=== PATIENT | female | born 1955 | race Caucasian/White ===

== ENCOUNTER 2024-02-04 10:03 | Day surgery (SDC) | payer MEDICARE, OTHER, SELFPAY ==
--- NOTE | 2024-02-03 11:18 | HP.FOC2 ---
Documented by User: COLLETTE Howard 02/04/24 10:43
Focused History & Physical
Chief Complaint
HPI:
Chief Complaint: ICD at [facility]
HPI / Indication for Planned Procedure:
68 y/o, PMH sig for NICM, chronic systolic HFmrEF 45-50%, NSVT, s/p DC ICD implant 05/2013.
Device now at [facility]. Presents for generator change.
Relevant Past Medical History: Other (Dilated NICM, chronic systolic HFmrEF 45-50%, NSVT, non-rheumatic mild MR, GERD)
Relevant Social History: ETOH (daily ETOH)
Relevant Family History: Positive for (Father- CHF, CAD ( 79), Sibling- Cardiomyopathy (alive))
Relevant Past Surgical History: Positive for (ICD implant (2013), wisdom teeth extraction)
Review of Systems
Review of Pertinent Systems: All Systems Negative
Medication
See Medication form for detailed medications: Yes
Medication List (including Herbals & OTC):
aspirin 81mg po daily
carvedilol 6.25mg po BID
losartan 25mg po daily
Medications Reviewed: Yes
Allergies and Reactions
Patient has Allergies: No
Noted Allergies and Reactions:
Allergy/AdvReac Type Severity Reaction Status Date / Time
No Known Allergies Allergy Unverified 05/07/13 07:28
Diagnosis / Assessment
Dilated NICM/Chronic systolic HFmrEF/NSVT
DC ICD at [facility]
gen change today
continue max huseyin GDMT
incision check in one week at [facility]
Plan / Procedure
ICD generator change today
incision check 1 week
Anesthesia/Sedation to be done by Anesthesia Provider: Yes

Documented by User: COLLETTE Hansen 02/04/24 10:53
Focused History & Physical
Pertinent Physical Exam
All Other Systems: Negative
Head/Neck: Normal
Lungs: Normal
Heart: Normal
Abdomen: Normal
Extremities: Normal
Neurological: Normal
[2024-02-04 10:31] VITALS: BP 141/86
--- NOTE | 2024-02-04 10:53 | W.ICD.CONTRA ---
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
-
History of [place]?: No
LV Function
Left ventricular function study result?: Ejection Fraction >/= 40%
ACEI/ARB/ARNI
Patient already on ACEI/ARB/ARNI: Yes
Beta-Irma
Patient already on Beta Irma: Yes
--- NOTE | 2024-02-04 11:55 | ITS.CL.ICD ---
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
Implantable Cardioverter Defibrillator
Procedure Report:
ICD GENERATOR CHANGE REPORT
Date of Procedure: February 04, 2024
Primary Care Provider: Dr. Elliot Chun
Primary Application Engineer: Dr. Gideon Cifuentes
PROCEDURES:
1. Removal of ICD Generator, 2. ICD Implant
INDICATION FOR PROCEDURE:
1. ICD at [facility]
2. Cardiomyopathy and NYHA class 2 CHF with reduced LVEF initially 30% at time of implant in 2013 since improved but not normalized with LVEF 45%.
Initial indication for implant is primary] prevention
'Time-out' was called and confirmed. The patient was prepped and draped in sterile fashion. Lidocaine with epi was used for local anesthesia. An incision was made along the previous incision and the device and leads were carefully dissected from
the pocket. Hemostasis was obtained with electrocautery. The leads were from the device header and tested using an external analyzer. The pocket was liberally irrigated with antibiotic solution. Once testing (see below) showed adequate
and stable function, the leads were connected to the generator header and the leads and generator were placed within the pocket. The pocket was closed in the typical fashion.
EXISTING ICD:
ICD Medtronic BWB [id number], Emily [address]
IMPLANTED ICD:
MEDTRONIC [id number], SN [id number]
EXISTING LEADS:
RA Medtronic 5076, SN: [id number]
RV Medtronic 6947, SN: [id number]
DEVICE TESTING:
Sensing: RA 1.6 mV, RV 6.5 mV,
Capture: RA 0.5 V@ 0.4 ms, RV 1 V@ 0.4 ms
Ohms: RA 475, RV 399
FINAL PROGRAMMING:
Billy Pacing: MVP 50-145 ppm
Tachy parameters:
VF: 188 bpm, ATP while charging, Shock
CONCLUSIONS:
1. Explant of ICD at [facility]
2. Successful implant ICD generator.
3. Normal function of ICD and leads at implant testing.
RECOMMENDATIONS:
1. Observation and consideration for discharge home later today.
2. In-Office wound check in 7 - 10 days.
Copy to:
Dr. Elliot Chun
Primary Application Engineer: Dr. Gideon Cifuentes
[2024-02-04 13:21] VITALS: BP 100/56
[2024-02-04 13:36] VITALS: BP 96/56
[2024-02-04 13:51] VITALS: BP 102/78
[2024-02-04 14:06] VITALS: BP 101/66
== END 2024-02-04 14:30 | disposition home or self-care (01) ==
LOC: CATH 10:03
PROVIDERS: ATTENDING PHYSICIAN Internal Medicine Cardiovascular Disease; OTHER PHYSICIAN Internal Medicine Cardiovascular Disease
DX: Z45.02 Encounter for adjustment and management of automatic implantable cardiac defibrillator (principal); I50.22 Chronic systolic (congestive) heart failure; K21.9 Gastro-esophageal reflux disease without esophagitis; I42.8 Other cardiomyopathies; I34.0 Nonrheumatic mitral (valve) insufficiency; Z79.899 Other long term (current) drug therapy; Z79.82 Long term (current) use of aspirin
CPT/HCPCS: 33263; 93005; C1721